=== PATIENT | male | born 1940 | race Two or more races ===

== ENCOUNTER 2017-07-25 14:15 | Outpatient (CLI) | payer MEDICARE, MEDICAID ==
[~2017-07-25] VITALS: Ht 170.2 cm; Wt 75.7 kg
[~2017-07-25 14:15] MED LIST: ASPIRIN EC325 MG ORAL; AVODART0.5 MG ORAL; CO Q-10200 MG PO; CRESTOR20 MG ORAL; FISH OIL500 MG PO; FLOMAX0.4 MG ORAL; JANUMET 50-1,01 EACH ORAL; LOSARTAN POTASS50 MG ORAL; NEXIUM40 MG ORAL; NIASPAN500 M1 ORAL; PLAVIX75 MG ORAL; PRANDIN1 MG ORAL
[2017-07-25 14:30] VITALS: BP 102/55
--- NOTE | 2017-07-25 15:31 | GI Initial Consult Note ---
ErnaDelma Milton N.P. 07/25/17 1531: History of Present Illness General Date patient seen: Jul 25, 2017 Time patient seen: 15:23 Referring physician: RUBEN GREER Reason for Consultation: WT LOSS Present Illness HPI 76 year old male referred by Dr. Foster for c/o of dysphagia and weight loss of 15 lbs in two months. The patient presents today with no other general GI symptoms. Home Meds Reported Medications Atorvastatin Calcium* (ATORVASTATIN CALCIUM*) 40 Mg Tablet, 40 MG ORAL BEDTIME, TAB 07/26/17 Ibuprofen* (MOTRIN*) 600 Mg Tablet, 600 MG ORAL DAILY, #30 TAB 0 Refills 07/26/17 Citalopram Hydrobromide* (CITALOPRAM HBR*) 20 Mg Tablet, 20 MG ORAL DAILY, TAB 07/26/17 Zolpidem Tartrate* (ZOLPIDEM TARTRATE*) 5 Mg Tablet, 5 MG ORAL BEDTIME Y for Insomnia, TAB 0 Refills 07/26/17 Linaclotide (LINZESS) 145 Mcg Capsule, 145 MCG PO DAILY, CAP 07/26/17 Losartan Potassium* (COZAAR*) 25 Mg Tablet, 25 MG ORAL DAILY, TAB 07/26/17 Aspirin* (ASPIRIN EC*) 325 Mg Tablet.dr, 325 MG ORAL DAILY, TAB 02/10/14 Dutasteride (AVODART) 0.5 Mg Capsule, 0.5 MG ORAL DAILY, CAP 02/10/14 Tamsulosin HCl (Flomax) 0.4 Mg Cap, 0.4 MG ORAL DAILY, CAP 02/10/14 Esomeprazole Magnesium (NEXIUM) 40 Mg Capsule.dr, 40 MG ORAL DAILY, CAP 02/10/14 Clopidogrel Bisulfate* (PLAVIX*) 75 Mg Tablet, 75 MG ORAL DAILY, TAB 02/10/14 Discontinued Reported Medications Repaglinide (Prandin) 1 Mg Tab, 1 MG ORAL THREE TIMES A DAY, TAB 02/10/14 Ubidecarenone (CO Q-10) 200 Mg Capsule, 200 MG PO DAILY, CAP 02/10/14 [place]-3 Fatty Acids (FISH OIL) 500 Mg Capsule, 500 MG PO DAILY, CAP 02/10/14 Losartan Potassium* (LOSARTAN POTASSIUM*) 50 Mg Tablet, 50 MG ORAL DAILY, TAB 02/10/14 Rosuvastatin Calcium* (CRESTOR*) 20 Mg Tablet, 20 MG ORAL DAILY, TAB 02/10/14 Sitagliptin Phos/Metformin Hcl (JANUMET 50-1,000 MG TABLET) 1 Each Tablet, 1 TAB ORAL TWICE A DAY, TAB 02/10/14 Niacin (NIASPAN) 500 Mg Tab.er.24h, 500 MG ORAL DAILY, #30 TAB 0 Refills 02/10/14 Med list reviewed/reconciled: Yes Allergies: Coded Allergies: No Known Allergies (Verified , 07/26/17) Patient History History Provided By: Patient PMH Narrative CAD (coronary artery disease) HTN (hypertension) DM (dermatomyositis) elevated cholesterol GERD BPH Past Surgical History Multiple angiogram, last 2008. Aneurysm 2005. Past Surgical History: other Pertinent Family History: none Social History: Denies: smoking, alcohol use, drug use, other Review of Systems All Other Systems: negative except mentioned in HPI Physical Exam T 98 BP 102/55 P 55 wt 167 lbs Sp02 EP Interpretation: reviewed, normal General Appearance: well appearing, no apparent distress, alert Head: normocephalic EENT: PERRL/EOMI, normal ENT inspection Neck: supple Respiratory: normal breath sounds, no respiratory distress Cardiovascular: normal rate Gastrointestinal: normal inspection, non tender, soft, normal bowel sounds, non -distended Rectal: deferred Genitourinary: deferred Musculoskeletal: normal inspection, back normal Neurologic: normal inspection, alert, oriented x3, responsive Psychiatric: normal inspection, judgement/insight normal, memory normal Skin: normal inspection, normal color, no rash, warm/dry, palpation normal, well hydrated Lymphatic: normal inspection, no adenopathy GI: Plan Problems: (1) Encounter for diagnostic endoscopy (2) Dysphagia (3) Weight loss (4) DM (dermatomyositis) (5) HTN (hypertension) (6) CAD (coronary artery disease) Plan EGD scheduled 07/27/17. - NPO day prior of procedure instructions given to patient. s/p colonoscopy 2013, repeat colon x [address] and labs to be drawn day of procedure. Seen with Dr. Bustillos. Thank you for referring this patient. THAO BUSTILLOS 07/27/17 0946: History of Present Illness Present Illness Home Meds Reported Medications Atorvastatin Calcium* (ATORVASTATIN CALCIUM*) 40 Mg Tablet, 40 MG ORAL BEDTIME, TAB 07/26/17 Ibuprofen* (MOTRIN*) 600 Mg Tablet, 600 MG ORAL DAILY, #30 TAB 0 Refills 07/26/17 Citalopram Hydrobromide* (CITALOPRAM HBR*) 20 Mg Tablet, 20 MG ORAL DAILY, TAB 07/26/17 Zolpidem Tartrate* (ZOLPIDEM TARTRATE*) 5 Mg Tablet, 5 MG ORAL BEDTIME Y for Insomnia, TAB 0 Refills 07/26/17 Linaclotide (LINZESS) 145 Mcg Capsule, 145 MCG PO DAILY, CAP 07/26/17 Losartan Potassium* (COZAAR*) 25 Mg Tablet, 25 MG ORAL DAILY, TAB 07/26/17 Aspirin* (ASPIRIN EC*) 325 Mg Tablet.dr, 325 MG ORAL DAILY, TAB 02/10/14 Dutasteride (AVODART) 0.5 Mg Capsule, 0.5 MG ORAL DAILY, CAP 02/10/14 Tamsulosin HCl (Flomax) 0.4 Mg Cap, 0.4 MG ORAL DAILY, CAP 02/10/14 Esomeprazole Magnesium (NEXIUM) 40 Mg Capsule.dr, 40 MG ORAL DAILY, CAP 02/10/14 Clopidogrel Bisulfate* (PLAVIX*) 75 Mg Tablet, 75 MG ORAL DAILY, TAB 02/10/14 Discontinued Reported Medications Repaglinide (Prandin) 1 Mg Tab, 1 MG ORAL THREE TIMES A DAY, TAB 02/10/14 Ubidecarenone (CO Q-10) 200 Mg Capsule, 200 MG PO DAILY, CAP 02/10/14 [place]-3 Fatty Acids (FISH OIL) 500 Mg Capsule, 500 MG PO DAILY, CAP 02/10/14 Losartan Potassium* (LOSARTAN POTASSIUM*) 50 Mg Tablet, 50 MG ORAL DAILY, TAB 02/10/14 Rosuvastatin Calcium* (CRESTOR*) 20 Mg Tablet, 20 MG ORAL DAILY, TAB 02/10/14 Sitagliptin Phos/Metformin Hcl (JANUMET 50-1,000 MG TABLET) 1 Each Tablet, 1 TAB ORAL TWICE A DAY, TAB 02/10/14 Niacin (NIASPAN) 500 Mg Tab.er.24h, 500 MG ORAL DAILY, #30 TAB 0 Refills 02/10/14 Allergies: Coded Allergies: No Known Allergies (Verified , 07/26/17) GI: Plan Plan The patient was seen and examined at bedside and all new and available data was reviewed in the patients chart. I agree with the above findings, impression and plan. (Patient seen earlier today. Signature stamp does not reflect patient encounter time.). - MD Erna [facility] Milton Keller Jul 25, 2017 15:31 THAO BUSTILLOS Jul 27, 2017 09:46
[2017-07-26] MEDS ORDERED: ATORVASTATIN CA40 MG ORAL (16:08)
[2017-07-26] MEDS ORDERED: LINZESS145 MCG PO (16:08)
[2017-07-26] MEDS ORDERED: ZOLPIDEM TARTRAT5 MG ORAL (16:08)
[2017-07-26] MEDS ORDERED: IBUPROFEN600 MG ORAL (16:08)
[2017-07-26] MEDS ORDERED: CITALOPRAM HBR20 M1 ORAL (16:08)
[2017-07-26] MEDS ORDERED: COZAAR25 MG ORAL (16:08)
== END 2017-07-25 14:45 | disposition home or self-care (01) ==
LOC: PAN 14:15
DX: R13.10 Dysphagia, unspecified (principal); R63.4 Abnormal weight loss; E11.9 Type 2 diabetes mellitus without complications; I10 Essential (primary) hypertension; I25.10 Atherosclerotic heart disease of native coronary artery without angina pectoris; Z79.82 Long term (current) use of aspirin; K21.9 Gastro-esophageal reflux disease without esophagitis; E78.00 Pure hypercholesterolemia, unspecified
CPT/HCPCS: 99201

== ENCOUNTER 2017-07-27 08:51 | Day surgery (SDC) | payer MEDICARE, MEDICAID ==
[~2017-07-27] VITALS: Ht 188 cm; Wt 75.7 kg
[2017-07-27] VITALS (7 sets, daily range): BP systolic 111–131; BP diastolic 60–77
--- NOTE | 2017-07-27 06:43 | Anethesia Preoperative Eval ---
Anesthesia Pre-op PMH/ROS General Date of Evaluation: Jul 27, 2017 Time of Evaluation: 06:41 Anesthesiologist: roxann ASA Score: ASA 3 Mallampati Score Class I : Soft palate, uvula, fauces, pillars visible Class II: Soft palate, uvula, fauces visible Class III: Soft palate, base of uvula visible Class IV: Only hard plate visible Mallampati Classification: Class II Surgeon: leisa Diagnosis: gerd/colon screening Surgical Procedure: egd/colonoscopy Anesthesia History: none Family History: no anesthesia problems Allergies: Coded Allergies: No Known Allergies (Verified , 07/26/17) Medications: see eMAR Past Medical History Cardiovascular: Reports: HTN, CAD, other - cabg Gastrointestinal/Genitourinary: Reports: GERD Endocrine: Reports: DM Anesthesia Pre-op Phys. Exam Physician Exam Last Vital Signs Date Time Temp Pulse Resp B/P (MAP) Pulse Ox O2 Delivery O2 Flow Rate FiO2 07/27/17 09:36 97.1 71 20 131/77 100 Room Air Constitutional: NAD Neurologic: CN 2-12 intact Cardiovascular: RRR Respiratory: CTA Gastrointestinal: S/NT/ND Airway Exam Mallampati Score: Class II MO: full Neck: supple TMD: 2fb ROM: full Teeth: intact Anesthesia Pre-op A/P Labs Labs Test 07/27/17 09:30 07/27/17 09:50 White Blood Count 7.1 K/UL (4.8-10.8) Red Blood Count 3.69 M/UL (4.70-6.10) Hemoglobin 13.0 G/DL (14.2-18.0) Hematocrit 38.4 % (42.0-52.0) Mean Corpuscular Volume 104 FL (80-99) Mean Corpuscular Hemoglobin 35.1 PG (27.0-31.0) Mean Corpuscular Hemoglobin Concent 33.8 G/DL (32.0-36.0) Red Cell Distribution Width 12.0 % (11.6-14.8) Platelet Count 157 K/UL (150-450) Mean Platelet Volume 6.4 FL (6.5-10.1) Neutrophils (%) (Auto) 60.3 % (45.0-75.0) Lymphocytes (%) (Auto) 22.9 % (20.0-45.0) Monocytes (%) (Auto) 12.1 % (1.0-10.0) Eosinophils (%) (Auto) 3.8 % (0.0-3.0) Basophils (%) (Auto) 0.8 % (0.0-2.0) Total Bilirubin 0.4 MG/DL (0.2-1.0) Direct Bilirubin < 0.1 MG/DL (0.0-0.3) Aspartate Amino Transf (AST/SGOT) 20 U/L (15-37) Alanine Aminotransferase (ALT/SGPT) 17 U/L (12-78) Alkaline Phosphatase 52 U/L (46-116) Total Protein 7.5 G/DL (6.4-8.2) Albumin 4.0 G/DL (3.4-5.0) Sodium Level 139 MMOL/L (136-145) Potassium Level 4.5 MMOL/L (3.5-5.1) Chloride Level 106 MMOL/L (98-107) Carbon Dioxide Level 23 MMOL/L (21-32) Anion Gap 10 mmol/L (5-15) Blood Urea Nitrogen 44 mg/dL (7-18) Creatinine 1.8 MG/DL (0.55-1.30) Estimat Glomerular Filtration Rate mL/min (>60) Glucose Level 92 MG/DL (74-106) Calcium Level 9.7 MG/DL (8.5-10.1) Studies Pre-op Studies: EKG - nsr lad Risk Assessment & Plan Assessment: asa3 Plan: mac Status Change Before Surgery: No Pre-Antibiotics Drug: SAMANTHA Foy Jul 27, 2017 06:43
[~2017-07-27 08:51] MED LIST changes: +ATORVASTATIN CA40 MG ORAL; +CITALOPRAM HBR20 M1 ORAL; +COZAAR25 MG ORAL; +IBUPROFEN600 MG ORAL; +LINZESS145 MCG PO; +ZOLPIDEM TARTRAT5 MG ORAL
[2017-07-27 09:53] LABS: BASOPHILS % (AUTO) 0.8 % (0.0-2.0); EOSINOPHILS % (AUTO) 3.8 % (0.0-3.0); LYMPHOCYTES % (AUTO) 22.9 % (20.0-45.0); MEAN CORPUSCULAR HEMOGLOBIN 35.1 PG (27.0-31.0); MEAN CORPUSCULAR HGB CONC 33.8 G/DL (32.0-36.0); MEAN CORPUSCULAR VOLUME 104 FL (80-99); MEAN PLATELET VOLUME 6.4 FL (6.5-10.1); MONOCYTES % (AUTO) 12.1 % (1.0-10.0); NEUTROPHILS % (AUTO) 60.3 % (45.0-75.0); PLATELET COUNT 157 K/UL (150-450); RED BLOOD COUNT 3.69 M/UL (4.70-6.10); WHITE BLOOD COUNT 7.1 K/UL (4.8-10.8)
[2017-07-27 10:17] LABS: ANION GAP 10 mmol/L (5-15); CALCIUM 9.7 MG/DL (8.5-10.1); CARBON DIOXIDE 23 MMOL/L (21-32); CHLORIDE 106 MMOL/L (98-107); CREATININE 1.8 MG/DL (0.55-1.30); POTASSIUM 4.5 MMOL/L (3.5-5.1); SODIUM 139 MMOL/L (136-145)
--- NOTE | 2017-07-27 10:39 | Short Stay Surgery H&P ---
History of Present Illness History of Present Illness Chief Complaint SEE RECENT OFFICE NOTE HPI Janiya Henley is a 76 year old male who was admitted on for Gerd/Colon Screening Patient History Allergies: Coded Allergies: No Known Allergies (Verified , 07/26/17) PAST MEDICAL HISTORY: Past Surgeries: Social History: Medication History Scheduled Aspirin* (Aspirin Ec*), 325 MG ORAL DAILY, (Reported) Atorvastatin Calcium* (Atorvastatin Calcium*), 40 MG ORAL BEDTIME, (Reported) Citalopram Hydrobromide* (Citalopram Hbr*), 20 MG ORAL DAILY, (Reported) Clopidogrel Bisulfate* (Plavix*), 75 MG ORAL DAILY, (Reported) Dutasteride (Avodart), 0.5 MG ORAL DAILY, (Reported) Esomeprazole Magnesium (Nexium), 40 MG ORAL DAILY, (Reported) Ibuprofen* (Motrin*), 600 MG ORAL DAILY, (Reported) Linaclotide (Linzess), 145 MCG PO DAILY, (Reported) Losartan Potassium* (Cozaar*), 25 MG ORAL DAILY, (Reported) Tamsulosin HCl (Flomax), 0.4 MG ORAL DAILY, (Reported) Scheduled PRN Zolpidem Tartrate* (Zolpidem Tartrate*), 5 MG ORAL BEDTIME PRN for Insomnia, ( Reported) Discontinued Medications Losartan Potassium* (Losartan Potassium*), 50 MG ORAL DAILY, (Reported) Discontinued Reason: MD discontinued med Niacin (Niaspan), 500 MG ORAL DAILY, (Reported) Discontinued Reason: MD discontinued med [place]-3 Fatty Acids (Fish Oil), 500 MG PO DAILY, (Reported) Discontinued Reason: MD discontinued med Repaglinide (Prandin), 1 MG ORAL THREE TIMES A DAY, (Reported) Discontinued Reason: Medication dose changed Rosuvastatin Calcium* (Crestor*), 20 MG ORAL DAILY, (Reported) Discontinued Reason: MD discontinued med Sitagliptin Phos/Metformin Hcl (Janumet 50-1,000 Mg Tablet), 1 TAB ORAL TWICE A DAY, (Reported) Discontinued Reason: MD discontinued med Ubidecarenone (Co Q-10), 200 MG PO DAILY, (Reported) Discontinued Reason: MD discontinued med Physical Exam Vital Signs Last Vital Signs Date Time Temp Pulse Resp B/P (MAP) Pulse Ox O2 Delivery O2 Flow Rate FiO2 07/27/17 09:36 97.1 71 20 131/77 100 Room Air Labs Laboratory Tests Test 07/27/17 09:30 07/27/17 09:50 White Blood Count 7.1 K/UL (4.8-10.8) Red Blood Count 3.69 M/UL (4.70-6.10) L Hemoglobin 13.0 G/DL (14.2-18.0) L Hematocrit 38.4 % (42.0-52.0) L Mean Corpuscular Volume 104 FL (80-99) H Mean Corpuscular Hemoglobin 35.1 PG (27.0-31.0) H Mean Corpuscular Hemoglobin Concent 33.8 G/DL (32.0-36.0) Red Cell Distribution Width 12.0 % (11.6-14.8) Platelet Count 157 K/UL (150-450) Mean Platelet Volume 6.4 FL (6.5-10.1) L Neutrophils (%) (Auto) 60.3 % (45.0-75.0) Lymphocytes (%) (Auto) 22.9 % (20.0-45.0) Monocytes (%) (Auto) 12.1 % (1.0-10.0) H Eosinophils (%) (Auto) 3.8 % (0.0-3.0) H Basophils (%) (Auto) 0.8 % (0.0-2.0) Sodium Level 139 MMOL/L (136-145) Potassium Level 4.5 MMOL/L (3.5-5.1) Chloride Level 106 MMOL/L (98-107) Carbon Dioxide Level 23 MMOL/L (21-32) Anion Gap 10 mmol/L (5-15) Blood Urea Nitrogen 44 mg/dL (7-18) H Creatinine 1.8 MG/DL (0.55-1.30) H Estimat Glomerular Filtration Rate mL/min (>60) Glucose Level 92 MG/DL (74-106) Calcium Level 9.7 MG/DL (8.5-10.1) Plan Attestation Are the patient's medical conditions optimized for surgery? THAO BUSTILLOS Jul 27, 2017 10:39
--- NOTE | 2017-07-27 10:39 | Pre-Procedure Note/Attestation ---
Pre-Procedure Note/Attestation Complete Prior to Procedure Planned Procedure: not applicable Procedure Narrative: EGD/eus Indications for Procedure Pre-Operative Diagnosis: DYSPHAGIA WT LOSS Attestation I attest that I discussed the nature of the procedure; its benefits; risks and complications; and alternatives (and the risks and benefits of such alternatives ), prior to the procedure, with the patient (or the patient's legal insurance claims representative). I attest that, if there was a reasonable possibility of needing a blood transfusion, the patient (or the patient's legal insurance claims representative) was given the [facility] standardized written summary, pursuant to the Soren Caden Blood Safety Act ([place] Health and Safety Code # 1645, as amended). I attest that I re-evaluated the patient just prior to the surgery and that there has been no change in the patient's H&P, except as documented below: THAO BUSTILLOS Jul 27, 2017 10:39
[2017-07-27] MEDS ORDERED: Propofol 200mg/20ml IV ONE (11:00)
[2017-07-27] MEDS ORDERED: Lidocaine 1% MPF 10mg/ml 5ml ONE (11:00)
[2017-07-27] MEDS ORDERED: DiphenhydrAMINE 50mg/ml Inj IVP PRN (11:30)
[2017-07-27] MEDS ORDERED: fentaNYL 100 mcg/2 mL IV PRN (11:30)
[2017-07-27] MEDS ORDERED: Midazolam 2mg/2ml Inj IVP PRN (11:30)
[2017-07-27] MEDS ORDERED: Atropine Inj 1mg/10ml Syr IV PRN (11:30)
--- NOTE | 2017-07-27 11:37 | Endoscopy Procedure Note ---
Endoscopy Procedure Note Indication for Procedure: wt loss Procedures Performed: EGD, other - EUS Operative Findings/Diagnosis: gastritis Specimen: yes Pt Tolerated Procedure Well: Yes Estimated Blood Loss: none Anesthesiologist: susan Anesthesia: MAC Implant(s) used?: No 50 yrs or older w/o bx or poly: Not Applicable 10yrs. F/U not recommended: Not Applicable THAO BUSTILLOS Jul 27, 2017 11:37
[2017-07-27 11:44] LABS: ALANINE AMINOTRANSFERASE 17 U/L (12-78); ASPARTATE AMINO TRANSFERASE 20 U/L (15-37); BILIRUBIN,DIRECT < 0.1 MG/DL (0.0-0.3); TOTAL PROTEIN 7.5 G/DL (6.4-8.2)
--- NOTE | 2017-07-27 11:59 | Immediate Post-Op Evaluation ---
Immediate Post-Op Evalulation Immediate Post-Op Evalulation Procedure: egd/eus Date of Evaluation: Jul 27, 2017 Time of Evaluation: 11:59 IV Fluids: 650ml 0.9ns Blood Products: none Estimated Blood Loss: negligible Blood Pressure Systolic: 116 Blood Pressure Diastolic: 61 Pulse Rate: 65 Respiratory Rate: 18 O2 Sat by Pulse Oximetry: 99 Temperature (Fahrenheit): 97.7 Pain Score (1-10): 0 Nausea: No Vomiting: No Complications none Patient Status: awake, reacts, patent Hydration Status: adequate Drug: SAMANTHA Foy Jul 27, 2017 11:59
--- NOTE | 2017-07-27 12:02 | 48 Hour Post Anesthesia Eval ---
Post Anesthesia Evaluation Procedure: egd/eus Date of Evaluation: Jul 27, 2017 Time of Evaluation: 12:01 Blood Pressure Systolic: 116 0: 65 Pulse Rate: 66 Respiratory Rate: 18 Temperature (Fahrenheit): 97.7 O2 Sat by Pulse Oximetry: 99 Airway: patent Nausea: No Vomiting: No Pain Intensity: 0 Hydration Status: adequate Cardiopulmonary Status: stable Mental Status/LOC: patient returned to baseline Post-Anesthesia Complications: none Follow-up care needed: N/A SAMANTHA JOYCE Jul 27, 2017 12:01
--- NOTE | 2017-07-27 17:37 | Diagnostic Imaging Report ---
Clinical Indication: Chest pain post esophagogastroduodenoscopy Technique: Spiral acquisitions obtained through the chest. No IV contrast utilized, renal insufficiency. Multiplanar reconstructions generated. Total dose length product 714 mGycm. CTDIvol(s) 20 mGy. Dose reduction achieved using automated exposure control Comparison: None Findings:There is suggestion of a small sliding-type hiatal hernia. The demonstrates diffuse equivocal minimal wall thickening, is otherwise unremarkable. No periesophageal gas or fluid is demonstrated. No mediastinal gas or fluid is demonstrated. The heart size is upper limits of normal. There is minimal anterior wall pericardial thickening versus fluid. There are coronary artery calcifications. No mediastinal or hilar mass or adenopathy. No axillary or chest wall mass or adenopathy. The lungs demonstrate posterior dependent atelectatic changes, are otherwise clear. The pleural spaces are clear. The included upper abdominal anatomy is remarkable for some cortical scarring in the upper pole of the spleen with some dystrophic calcification.. There is nonspecific bilateral perinephric fat stranding The bones are unremarkable Impression: No acute process. Specifically, no evidence of complications of recent endoscopy Equivocal minimal esophageal wall thickening, if real could indicate process such as esophagitis. Correlate with findings at recent endoscopy Small sliding-type hiatal hernia Posterior dependent pulmonary atelectatic changes, otherwise unremarkable lungs Coronary artery calcifications incidentally noted Other findings as noted, including nonspecific bilateral perinephric fat stranding, splenic cortical scarring with dystrophic calcification The CT scanner at [facility] is accredited by the [employer] and the scans are performed using protocols designed to limit radiation exposure to as low as reasonably achievable to attain images of sufficient resolution adequate for diagnostic evaluation.
--- NOTE | 2017-07-29 17:36 | Cardiology Report ---
APPROVED REPORT EKG Measurement Heart [id number] Normal sinus rhythm Left axis deviation Abnormal ECG
--- NOTE | 2017-07-30 10:15 | Procedure Note ---
DATE OF PROCEDURE: 07/27/2017 SURGEON: Tony Briggs M.D. PROCEDURE: Upper endoscopy with biopsy and endoscopic ultrasound. ANESTHESIA: Per Dr. Sin. INSTRUMENT: Olympus adult flexible upper endoscope and EUS scope. INDICATIONS: GERD, abdominal pain, dysphagia, and weight loss. REASON FOR PROCEDURE: The procedure, risks, benefits, and possible consequences, including hemorrhage, aspiration, perforation and infection, and alternative treatments, were explained to the patient/legal guardian by Dr. Tony Briggs and the patient/legal guardian understood and accepted these risks. DESCRIPTION OF PROCEDURE: After informed consent was obtained and the patient was adequately sedated, Olympus upper endoscope was advanced from the mouth into the second portion of the duodenum and retroflexion was performed in the stomach. The patient had evidence of about 3 cm hiatal hernia without any significant esophagitis. In the stomach, there was diffuse gastritis. Random biopsy from body and antrum was obtained to rule out H. pylori infection. At this time, the upper endoscope was retrieved and EUS radial scope was introduced. Starting scanning at GE junction, celiac axis was seen without any obvious celiac axis lymphadenopathy. Pancreatic parenchyma was seen without any obvious cyst, mass. Pancreatic duct was not seen in the body and tail, most probably because it was compressed or was small. Then, the scope was advanced into the duodenal bulb and second portion of duodenum where the head of the pancreas was examined. There was no obvious pancreatic mass seen. Common bile duct and pancreatic duct looked within normal limit at the head of the pancreas and at ampulla. Gallbladder was seen without any obvious stone. Limited view of the liver and the left lobe of the liver showed no obvious mass or lesion in the liver. At this time, the scope was retrieved and procedure was terminated. SUMMARY OF FINDINGS: 1. Diffuse gastritis, status post biopsy. 2. A 3 cm hiatal hernia. 3. Normal endoscopic ultrasound. RECOMMENDATIONS: Follow labs. Follow biopsy results. The patient to come back to office for further workup of weight loss. Tony Briggs M.D. DR: Libby JOB#: [id number] CC: NEREIDA
== END 2017-07-27 13:20 | disposition home or self-care (01) ==
LOC: GAS 08:51
DX: K21.9 Gastro-esophageal reflux disease without esophagitis (principal); R13.10 Dysphagia, unspecified; R63.4 Abnormal weight loss; K29.70 Gastritis, unspecified, without bleeding; K44.9 Diaphragmatic hernia without obstruction or gangrene; R10.9 Unspecified abdominal pain; I10 Essential (primary) hypertension; I25.10 Atherosclerotic heart disease of native coronary artery without angina pectoris; E11.9 Type 2 diabetes mellitus without complications; Z95.1 Presence of aortocoronary bypass graft; Z79.82 Long term (current) use of aspirin; K29.50 Unspecified chronic gastritis without bleeding; B96.81 Helicobacter pylori [H. pylori] as the cause of diseases classified elsewhere
CPT/HCPCS: 36415; 43239; 43259; 71250; 80048; 80076; 82962; 85025; 93005; J2704; 94003; 94150

== ENCOUNTER 2017-08-07 10:32 | Outpatient (CLI) | payer MEDICARE, MEDICAID ==
--- NOTE | 2017-08-07 11:04 | GI Progress Note ---
Assessment/Plan Problems: (1) Helicobacter pylori (H. pylori) ICD Codes: A04.8 - Other specified bacterial intestinal infections SNOMED: 836584474 (2) Dysphagia ICD Codes: R13.10 - Dysphagia, unspecified SNOMED: 93933757, 799565761 (3) Weight loss ICD Codes: R63.4 - Abnormal weight loss SNOMED: 54576339, 962974424 (4) DM (dermatomyositis) ICD Codes: M33.90 - DM (dermatomyositis) SNOMED: 474498617 Status: stable Status Narrative Seen with Dr. Briggs. Assessment/Plan EGD/EUS reviewed with patient >> Diffused gastritis. Hiatal hernia. Normal EUS. Chest CT reviewed with patient >> no acute process labs reviewed with patient >> unremarkable Bx >> H. Pylori positive Recommendations: Tx for HP RTC x 3 months for repeat BT s/p colonoscopy 2013, repeat colon x 2 years Subjective Subjective dysphagia subsided eating better weight increase Objective T 98.3 BP 110/58 P 77 WT 169 (+2 lbs since 07/25/17) General Appearance: WD/WN, no apparent distress, alert Cardiovascular: normal rate Respiratory/Chest: normal breath sounds, no respiratory distress Abdominal Exam: normal bowel sounds, non tender, soft Extremities: normal range of motion, non-tender Delma Umanzor N.P. Aug 07, 2017 11:04
[2017-08-07 11:12] VITALS: BP 110/58
== END 2017-08-07 11:00 | disposition home or self-care (01) ==
LOC: PAN 10:32
DX: R13.10 Dysphagia, unspecified (principal); R63.4 Abnormal weight loss; B96.81 Helicobacter pylori [H. pylori] as the cause of diseases classified elsewhere; M33.90 Dermatopolymyositis, unspecified, organ involvement unspecified; K29.70 Gastritis, unspecified, without bleeding; K44.9 Diaphragmatic hernia without obstruction or gangrene
CPT/HCPCS: 99211

== ENCOUNTER 2018-01-15 11:18 | Outpatient (CLI) | payer MEDICARE, MEDICAID ==
[2018-01-15 12:45] VITALS: BP 124/67
--- NOTE | 2018-01-15 16:18 | GI Progress Note ---
Assessment/Plan Problems: (1) Helicobacter pylori (H. pylori) ICD Codes: A04.8 - Other specified bacterial intestinal infections SNOMED: 939070393 (2) Weight loss ICD Codes: R63.4 - Abnormal weight loss SNOMED: 62269930, 357437482 (3) Dysphagia ICD Codes: R13.10 - Dysphagia, unspecified SNOMED: 21438413, 474705344 Status: stable Status Narrative Seen with Dr. Briggs. Assessment/Plan repeat BT repeat colonoscopy in 2019. Rx Xifaxan for travelers diarrhea referral to Dr. Griffin for diabetes Linzess prn RTC prn Subjective Gastrointestinal/Abdominal: Reports: no symptoms Objective Last 24 Hour Vital Signs Date Time Temp Pulse Resp B/P (MAP) Pulse Ox O2 Delivery O2 Flow Rate FiO2 01/15/18 12:45 98.2 86 124/67 95 98.2 Laboratory Tests Test 01/15/18 11:29 Helicobacter pylori Breath Test Pending General Appearance: WD/WN, no apparent distress, alert Cardiovascular: normal rate Respiratory/Chest: normal breath sounds, no respiratory distress Abdominal Exam: normal bowel sounds, non tender, soft Extremities: normal range of motion, non-tender Delma Umanzor N.P. Jan 15, 2018 16:18
== END 2018-01-15 11:50 | disposition home or self-care (01) ==
LOC: PAN 11:18
DX: R63.4 Abnormal weight loss (principal); R13.10 Dysphagia, unspecified; A04.8 Other specified bacterial intestinal infections
CPT/HCPCS: 83013; G0463; 99212

== ENCOUNTER 2018-02-05 10:19 | Outpatient (CLI) | payer MEDICARE, MEDICAID ==
[2018-02-05 11:33] VITALS: BP 142/72
--- NOTE | 2018-02-06 15:56 | GI Progress Note ---
Assessment/Plan Problems: (1) Helicobacter pylori (H. pylori) ICD Codes: A04.8 - Other specified bacterial intestinal infections SNOMED: 462248035 (2) Weight loss ICD Codes: R63.4 - Abnormal weight loss SNOMED: 09210945, 564328279 (3) Dysphagia ICD Codes: R13.10 - Dysphagia, unspecified SNOMED: 31308452, 231862344 Status: stable Status Narrative Seen with Dr. Briggs. Assessment/Plan H. Pylori Treatment >> - Amoxicillin 1g BID - Biaxin 500mb BID - Omeprazole 40mg x 2 weeks followed by Omeprazole 40mg PO daily x 6 weeks RTC x 3 month for repeat Breath Test Subjective Subjective constipation Objective T 97.8 BP 142/72 P 64 97 RA General Appearance: WD/WN, no apparent distress, alert Cardiovascular: normal rate Respiratory/Chest: normal breath sounds, no respiratory distress Abdominal Exam: normal bowel sounds, non tender, soft Extremities: normal range of motion, non-tender Delma Umanzor N.P. February 06, 2018 15:55
== END 2018-02-05 10:43 | disposition home or self-care (01) ==
LOC: PAN 10:19
DX: R13.10 Dysphagia, unspecified (principal); R63.4 Abnormal weight loss; A04.8 Other specified bacterial intestinal infections
CPT/HCPCS: 99211

== ENCOUNTER 2020-09-29 13:44 | Outpatient (CLI) | payer MEDICARE, MEDICAID ==
[2020-09-29 14:05] VITALS: BP 135/75
== END 2020-09-29 15:44 | disposition home or self-care (01) ==
LOC: PAN 13:44
DX: R10.9 Unspecified abdominal pain (principal)
CPT/HCPCS: 99212